=== PATIENT | female | born 1945 | race Caucasian/White ===

== ENCOUNTER 2023-12-03 18:22 | Emergency (ER) | payer OTHER ==
[~2023-12-03] VITALS: Ht 154.9 cm; Wt 56.4 kg
[2023-12-03 22:10] VITALS: BP 143/75; PULSE 72; RESP 18; O2SAT 99
== END 2023-12-03 22:13 | disposition home or self-care (01) ==
LOC: ER 18:27
DX: S43.402A Unspecified sprain of left shoulder joint, initial encounter (principal); Z98.890 Other specified postprocedural states; W18.39XA Other fall on same level, initial encounter; Y93.89 Activity, other specified; Y92.89 Other specified places as the place of occurrence of the external cause; Y99.8 Other external cause status
CPT/HCPCS: 70450; 73030